=== PATIENT | female | born 1980 | race Caucasian/White ===

== ENCOUNTER 2017-04-10 04:08 | Emergency (ER) | payer BC ==
[2017-04-10] MEDS ORDERED: Ketorolac Tromethamine 30 MG/ML VIAL ONE (04:51)
== END 2017-04-10 05:10 | disposition home or self-care (01) ==
LOC: ERS 04:08
DX: K02.9 Dental caries, unspecified (principal); F41.9 Anxiety disorder, unspecified; F32.9 Major depressive disorder, single episode, unspecified; Z79.899 Other long term (current) drug therapy
CPT/HCPCS: 96372; J1885

== ENCOUNTER 2018-01-08 14:47 | Day surgery (SDC) | payer BC ==
[2018-01-08 16:02] LABS: #Eosinphils 0.1 thou/uL (0.0-0.7); #Lymphocytes 2.1 thou/uL (1.20-3.40); #Monocytes 0.5 thou/uL (0.11-0.59); #Neutrophils 8.9 thou/uL (1.40-6.50); %Basophils 0.4 % (0.0-1.0); %Eosinophils 0.8 % (0.0-10.0); %Lymphocytes 17.8 % (21.0-51.0); %Monocytes 4.1 % (0.0-10.0); Hemoglobin 12.3 g/dL (12.0-16.0); Mean Corpuscular HGB CONC 33.8 g/dL (32.0-36.0); Mean Corpuscular Hemoglobin 30.1 pg (27.0-31.0); Mean Platelet Volume 6.9 fL (7.4-10.4); Platelet Count 258 thou/uL (130-400); RBC Distribution Width 11.7 % (11.5-14.5); Red Blood Cell (RBC) Count 4.08 mill/uL (4.20-5.40); White Blood Cell (WBC) Count 11.5 thou/uL (4.8-10.8)
[2018-01-08 16:04] LABS: Bilirubin Negative (Negative); Blood, Urine Negative (Negative); Clarity CLEAR (Clear); Glucose, Urine (Dipstick) Negative (Negative); Leukocyte Negative (Negative); Nitrite Negative (Negative); Protein, Urine (Dipstick) Negative (Neg-Trace); Specific Gravity, Urine 1.011 (1.002-1.036); pH, Urine 6.5 (5.0-9.0)
[2018-01-08 16:23] LABS: ALT (SGPT) 11 U/L (8-55); AST (SGOT) 11 U/L (5-34); Albumin 3.3 g/dL (3.5-5.0); Alkaline Phosphatase 81 U/L (40-150); Anion Gap 11 mmol/L (10-20); BUN (Urea Nitrogen) 4 mg/dL (7.0-18.7); Bilirubin, Total 0.3 mg/dL (0.2-1.2); Calc. Creatinine Clearance 0 mL/min (70-130); Calcium 8.8 mg/dL (7.8-10.44); Carbon Dioxide 21 mmol/L (22-29); Chloride 106 mmol/L (98-107); Estimated GFR-MDRD Greater than 90; Globulin 2.8 g/dL (2.4-3.5); Glucose 133 mg/dL (70-105); Potassium 3.6 mmol/L (3.5-5.1); Protein, Total 6.1 g/dL (6.0-8.3); Sodium 134 mmol/L (136-145)
[2018-01-08 16:24] VITALS: BMI 34.2
--- NOTE | 2018-01-09 02:49 | SS ---
DATE OF EVALUATION: 01/08/2018 LABOR AND DELIVERY TRIAGE NOTE REGULAR PHYSICIAN: Farhan Santos D.O. EVALUATING PHYSICIAN: Nathan Gaston M.D. CHIEF COMPLAINT: Elevated blood pressures at home. HISTORY OF PRESENT ILLNESS: Ms. Garcia is a 38-year-old white G2, P0-1-0-1 with an estimated date of confinement of 05/10/2018, who presents to triage after noticing elevated blood pressures at home. She states she did not feel well last week and was put on blood pressure monitoring at home. She had blood pressures of 145/74 and 148/84 and called into the office. She was told to come to triage for evaluation. She denies significant headache, visual changes , or right upper quadrant pain. Her care so far has been uncomplicated with Dr. Santos. PAST OBSTETRICAL HISTORY: Includes a previous for elevated blood pressure and gestational diabetes. PAST MEDICAL HISTORY: None. PAST SURGICAL HISTORY: and cholecystectomy. CURRENT MEDICATIONS: vitamins and a baby aspirin. ALLERGIES: CODEINE. SOCIAL HISTORY: Denies tobacco or alcohol use. FAMILY HISTORY: Unremarkable. REVIEW OF SYSTEMS: She denies nausea, vomiting, fever, chills, vaginal bleeding , or ruptured membranes. She also denies significant headache or visual changes. PHYSICAL EXAMINATION: VITAL SIGNS: Initial blood pressure in triage is 170/72, her next blood pressure is 147/64, her pulse is 81, and she is afebrile. ABDOMEN: Soft, nontender, and gravid. PELVIC EXAMINATION: Deferred. heart tones are stable. No uterine activity is seen. LABORATORY DATA: CBC shows a white count of 11.5, hemoglobin of 12.3, a hematocrit of 36.3, and a platelet count of 258,000. Chemistry shows a potassium of 3.6, a creatinine of 0.61, a total bilirubin of 0.3 and an AST and ALT of 11 and 11 respectively. Urinalysis shows a specific gravity 1.011 with negative leukocytes, negative nitrites, negative urine protein, negative glucose , and negative ketones. ASSESSMENT: 1. 22-week intrauterine . 2. No evidence of preeclampsia at this time. PLAN: The patient has been discharged to home. I have asked her to rest at home. Signs and symptoms of preeclampsia were reviewed with her and she states she will follow up early next week with Dr. Santos. ISAMAR
== END 2018-01-08 17:10 | disposition home or self-care (01) ==
LOC: L&D/OP 14:47 → EDSTATUS 14:48 → L&D/OP 17:10
PROVIDERS: ATTEND Obstetrics & Gynecology
DX: O99.89 Other specified diseases and conditions complicating pregnancy, childbirth and the puerperium (principal); R03.0 Elevated blood-pressure reading, without diagnosis of hypertension; Z3A.22 22 weeks gestation of pregnancy
CPT/HCPCS: 36415; 80053; 81003; 85025; 99283

== ENCOUNTER 2018-02-15 11:57 | Day surgery (SDC) | payer BC ==
[2018-02-15 12:57] VITALS: BMI 34.9
--- NOTE | 2018-02-15 21:37 | PRG ---
DATE OF SERVICE: 02/15/2018 PRIMARY ASSEMBLY MANAGER: Dr. Farhan Santos. CHIEF COMPLAINT: Elevated blood pressures. HISTORY OF PRESENT ILLNESS: The patient is a 38-year-old G2, P1 female with an intrauterine pregnanc y at 28 weeks' gestation who was directed to labor and delivery after reporting elevated blood pressu res at home to her OB Clinic. She reports her blood pressures have been consistently in the 150s/90s . Reviewing the record, she has had elevated blood pressures in clinic first noted at 18 weeks and 6 days and was counseled to have a blood pressure cuff at home to check periodically. Patient reports that she checks it whenever she is feeling bad and is not always at home and she does do her blood p ressure evaluation. The patient reports intermittent headaches, nausea without vomiting, some shortn ess of breath. Denies chest pain, denies fever, denies any rashes, constipation or diarrhea. Denies any vaginal bleeding or leakage of fluid. Denies urinary urgency or frequency. PAST MEDICAL HISTORY: Fibromyalgia, hypothyroidism, diabetes mellitus preexisting versus gestational , obesity, advanced maternal age. PAST SURGICAL HISTORY: Previous performed at maternal request, cholecystectomy. ALLERGIES: CODEINE. MEDICATIONS: Lantus 10 units to be taken once daily, Humalog sliding scale with meals, niyah mins. SOCIAL HISTORY: Denies drug, alcohol or tobacco use. OB HISTORY: The patient has a history of gestational hypertension and gestational diabetes. OB LABS: Blood type O positive, antibody screen is negative. She is rubella immune, hepatitis B roberto face antigen is nonreactive. RPR is nonreactive in the first trimester. LABORATORY STUDIES: Hemoglobin A1c 6.5 in 09/2017. HIV nonreactive in the first trimester. Gonorrh ea negative, chlamydia negative. REVIEW OF SYSTEMS: Per HPI. PHYSICAL EXAMINATION: VITAL SIGNS: The patient was monitored over the course of 2 hours and blood pressures remained in th e 120s/70s, pulse of 70s and 80s. Respiration rate 20, satting 96-98% on room air, temperature 98.2. GENERAL: She appears to be in no acute distress. She is alert and oriented, cooperative and pleasan t to interact with. HEENT: Normocephalic, atraumatic. LUNGS: Clear to auscultation bilaterally. HEART: Regular rate and rhythm. ABDOMEN: Soft, nontender and nonedematous. EXTREMITIES: Nontender, nonedematous. heart tracing performed for reported elevated blood pressures. Baseline is noted to be in the 140s with moderate long-term variability, positive 15 x 15 accelerations. Tocometer is quiet. No ev idence of contractions. ASSESSMENT AND PLAN: The patient is a 38-year-old female with reported elevated blood pressures at h ome with all normal pressures here in the clinic or here in labor and delivery, the patient did bring her blood pressure cuff and did check it forth the way she normally does and it initially read 156/9 2. The patient was elevating her arm as she was taking the blood pressure cuff and not resting on th e table. Upon showing her proper technique, the blood pressure immediately dropped within the ranges of what will be getting here in the 120s/70s. Demonstrating the importance of proper technique to t he patient, the patient responded that she is not able to put her arm at rest and when she takes her blood pressure that she is in her car sometimes and we asked that she take her blood pressure when sh e can be at rest and when she can put her arm in the proper positioning. The patient again reported that she cannot put her arm on a table and I shared with her that I was not trying to argue with her, but that I was trying to communicate to her that unless she places her arm as instructed on the mach ine that the blood pressures are not reliable. Patient did not seem to appreciate this response and became upset. did respond that they would figure something. The interaction was calm and qu iet. Fetus had a reassuring tracing. The patient was discharged to home and encouraged to follow up with her primary OB as scheduled.
== END 2018-02-15 15:05 | disposition home or self-care (01) ==
LOC: L&D/OP 11:57
PROVIDERS: ATTEND Obstetrics & Gynecology
DX: O99.89 Other specified diseases and conditions complicating pregnancy, childbirth and the puerperium (principal); R03.0 Elevated blood-pressure reading, without diagnosis of hypertension; O99.212 Obesity complicating pregnancy, second trimester; O99.282 Endocrine, nutritional and metabolic diseases complicating pregnancy, second trimester; E03.9 Hypothyroidism, unspecified; O09.522 Supervision of elderly multigravida, second trimester; Z3A.18 18 weeks gestation of pregnancy; Z88.5 Allergy status to narcotic agent
CPT/HCPCS: 99283

== ENCOUNTER → 2018-03-17 | Day surgery (SDC) | payer BC ==
[2018-03-17 16:23] VITALS: BP 141/68; TEMP 98.1; BMI 34.9
[2018-03-17 17:59] LABS: Bilirubin Negative (Negative); Blood, Urine Negative (Negative); Clarity CLEAR (Clear); Glucose, Urine (Dipstick) Negative (Negative); Leukocyte Negative (Negative); Nitrite Negative (Negative); Protein, Urine (Dipstick) Negative (Neg-Trace); Specific Gravity, Urine 1.009 (1.002-1.036); Urobilinogen 0.2 mg/dL (0.2-1.0)
[2018-03-17 18:03] LABS: Bacteria/HPF None Seen HPF (None Seen); Hyaline Casts/LPF 0-3 HYALINE CAST LPF (0-3 Hyaline); Pathc Cast-AUWi Flag 0.87 (0-2.49); RBC/HPF 0-3 HPF (0-3); Squamous Epithelial 0-3 HPF (0-3); WBC/HPF 0-3 HPF (0-3)
--- NOTE | 2018-03-17 20:06 | PRG ---
DATE OF SERVICE: 03/17/2018 PRIMARY HEADER BOSS: Dr. Farhan Santos. CHIEF COMPLAINT: Right lower quadrant pains. HISTORY OF PRESENT ILLNESS: The patient is a 38-year-old G2, P1 female with an intrauterine pregnanc y at 32 weeks and 2 days who is presenting with complaints of pains in her right lower quadrant that was sharp and pretty intense and has since improved some. Given the intensity that she was experienc ing it, she wanted to come in to be evaluated. Patient denies having pain associated with movement a nd activity. She says that walking and activity helped improve the pain at times. This pain has bee n present off and on for the last couple hours. She reports that she feels the pain into her legs at times. The patient denies recent intercourse, fall, trauma, fever, headache, chest pain, shortness of breath, nausea, vomiting, diarrhea, constipation, new rashes, hip problems or knee problems or mus benjy weakness. She denies vaginal bleeding or leakage of fluid. She denies urinary urgency or freque ncy. The patient has an appointment with her OB doctor next Tuesday and had an ultrasound yesterday. PAST MEDICAL HISTORY: Hypothyroidism, fibromyalgia, diabetes. PAST SURGICAL HISTORY: . SOCIAL HISTORY: Denies drug, alcohol or tobacco use. ALLERGIES: CODEINE. MEDICATIONS: Humalog, Lantus, Reglan 5 mg tablets to be taken by mouth every 6 hours as needed. OB LABS: Unavailable at time of dictation. REVIEW OF SYSTEMS: Per HPI. PHYSICAL EXAMINATION: VITAL SIGNS: Blood pressure 141/68, heart rate of 67, respiratory rate of 16, satting 99% on room ai r, temperature 98.1. GENERAL: She appears to be in no acute distress. She is alert and oriented, cooperative and pleasan t to interact with. HEENT: Normocephalic, atraumatic. CHEST: Clear to auscultation bilaterally. HEART: Regular rate and rhythm. ABDOMEN: Soft, gravid, nontender to palpation. EXTREMITIES: Nontender, nonedematous. PELVIC: Vulva is without masses, lesions or erythema. Cervix is visibly closed. There is minimal d ischarge present. On bimanual exam, cervix is closed and thick. heart tracing performed for abdominal pain in . Baseline is noted to be in the 130s w ith moderate long-term variability, positive 15 x 15 accelerations, no decelerations. She has some i rritability, not felt by the patient though. Urinalysis is negative for glucose, blood, nitrites, le ukocyte esterase, white blood cells, and bacteria. She does have 80 ketones. Her METAL FINISH INSPECTOR-3 is negative f or Trichomonas, Gardnerella and Loni. ASSESSMENT AND PLAN: The patient is a 38-year-old female G2, P1 with an intrauterine at 32 weeks and 2 days who is presenting with acute onset right lower quadrant pain that has resolved on i ts own by the end of her visit with us. Patient reports that the pain has gotten much better and is relieved that it is not anything serious. The patient has been given precautions and when being disc harged to home, she has no evidence of urinary tract infection or vaginal infection. As the patient was given final staff counsel, she did report that she does not eat much during the day and that may be cou nt for her ketones. The patient has scheduled appointment next Tuesday with her primary OB, which we have encouraged that she keep.
== END ==
LOC: L&D/OP 15:46
PROVIDERS: ATTEND Obstetrics & Gynecology
DX: O99.89 Other specified diseases and conditions complicating pregnancy, childbirth and the puerperium (principal); R10.31 Right lower quadrant pain; O24.913 Unspecified diabetes mellitus in pregnancy, third trimester; O99.283 Endocrine, nutritional and metabolic diseases complicating pregnancy, third trimester; E03.9 Hypothyroidism, unspecified; Z3A.32 32 weeks gestation of pregnancy; Z88.5 Allergy status to narcotic agent; Z98.890 Other specified postprocedural states
CPT/HCPCS: 81001; 87480; 87510; 87660

== ENCOUNTER 2018-04-19 09:39 | Inpatient (IN) | payer BC ==
[2018-04-19] MEDS: Lactated Ringer's 1,000 ML IV SCH ×2 (10:40→10:57)
[2018-04-19] MEDS ORDERED: Bicitra 30 ML UDCUP ONE (10:48)
[2018-04-19] MEDS ORDERED: CEFAZOLIN/Water 2 GM/20 ML SYRINGE ONE (10:48)
--- NOTE | 2018-04-19 10:59 | PDOC.LDHP ---
Labor and Delivery H&P Chief complaint: scheduled section HPI: Pt is a 38yo @ 37 weeks here for scheduled CS for GHTN and class B diabetes. Current gestational age (weeks): 37 Due date: 05/10/18 Dating criteria: last menstrual period, first trimester ultrasound Grav: 2 Para: 1 OB History Details: HX oF CS Current complications: other (diabetes, GHTN, hypothryoid) Abnormal US findings: No Past Medical History: diabetes controlled on insulin correction, GHTN, fibromyalgia Current medications: pre- vitamins, other (insulin,) Previous surgical history: low tranverse CS Allergies/Adverse Reactions: Allergies Allergy/AdvReac Type Severity Reaction Status Date / Time codeine Allergy Verified 02/15/18 12:42 Social history: none - Physical Exam Vital signs reviewed and normal: yes General: resting Abdomen: gravid Extremeties: trace edema FHT: category 1 - OB Labs Blood type: O RH: negative Antibody Screen: negative HIV: negative RPR: negative HEPSAg: negative GBS: negative Rubella: non-immune - Assessment L&D Assessment: scheduled repeat section - Plan Plan: admit to L&D, informed consent obtained, anesthesia consult for pain management -: A/P: 38yo @ 37 weeks with Class B DM, fibromyalgia, AMA, HTN since 34 weeks here for scheduled RCS, declines TOLAC. Pt amenable to ONQ pump.
[2018-04-19] MEDS ORDERED: Dexamethasone 20 MG/5 ML VIAL ONE (11:01)
[2018-04-19] MEDS ORDERED: PHENYLEPHRINE-NS 100 MCG/ML 10 ML SYRINGE ONE ×2 (11:01→11:37)
[2018-04-19] MEDS ORDERED: Ketorolac Tromethamine 30 MG/ML VIAL ONE ×2 (11:01→11:37)
[2018-04-19] MEDS ORDERED: Ondansetron HCl/PF 4 MG/2 ML Vial ONE ×2 (11:01→11:37)
[2018-04-19] MEDS ORDERED: Ropivacaine 0.2% 550 ML 750 ML NERVE BLCK SCH (11:26)
[2018-04-19] MEDS ORDERED: Bicitra 30 ML UDCUP PO SCH (11:26)
[2018-04-19] MEDS ORDERED: Promethazine HCl 25 MG/ML VIAL IM PRN ×4 (11:26→17:18)
[2018-04-19] MEDS ORDERED: Ondansetron HCl/PF 4 MG/2 ML Vial IVP PRN ×4 (11:26→15:55)
[2018-04-19] MEDS ORDERED: CEFAZOLIN/Water 2 GM/20 ML SYRINGE SLOW IVP SCH (11:26)
[2018-04-19] MEDS ORDERED: Ropivacaine HCl/PF 750 ML in Premix Bag 1 BAG NERVE BLCK SCH (11:30)
[2018-04-19] MEDS ORDERED: Morphine PF 1 MG/ML SYR ONE (11:36)
[2018-04-19] MEDS ORDERED: Fentanyl 100 MCG/2 ML VIAL ONE (11:36)
[2018-04-19] MEDS ORDERED: Bupivacaine 0.75% W/DEXTROSE 8.25% 2 ML AMP ONE (11:37)
[2018-04-19] MEDS ORDERED: Dexamethasone 4 mg/ml Vial ONE (11:37)
[2018-04-19] MEDS ORDERED: Lidocaine 2% PF Inj 2 ML VIAL ONE (11:37)
[2018-04-19] MEDS ORDERED: Oxytocin 10 UNITS/ML VIAL ONE (11:37)
[2018-04-19 11:39] LABS: Hemoglobin 12.1 g/dL (12.0-16.0); Mean Corpuscular Hemoglobin 26.9 pg (27.0-31.0); Mean Corpuscular Volume 81.5 fL (78.0-98.0); Mean Platelet Volume 7.2 fL (7.4-10.4); Platelet Count 337 thou/uL (130-400); Red Blood Cell (RBC) Count 4.52 mill/uL (4.20-5.40); White Blood Cell (WBC) Count 11.1 thou/uL (4.8-10.8)
[2018-04-19] MEDS ORDERED: Acetaminophen 1,000 MG in Premix Bag 1 BAG IVPB PRN (11:50)
[2018-04-19 11:52] LABS: ALT (SGPT) 11 U/L (8-55); AST (SGOT) 14 U/L (5-34); Albumin 3.2 g/dL (3.5-5.0); Alkaline Phosphatase 159 U/L (40-150); Anion Gap 14 mmol/L (10-20); BUN (Urea Nitrogen) 5 mg/dL (7.0-18.7); Bilirubin, Total 0.6 mg/dL (0.2-1.2); Calc. Creatinine Clearance 167 mL/min (70-130); Carbon Dioxide 19 mmol/L (22-29); Chloride 106 mmol/L (98-107); Estimated GFR-MDRD Greater than 90; Globulin 2.7 g/dL (2.4-3.5); Glucose 110 mg/dL (70-105); Protein, Total 5.9 g/dL (6.0-8.3); Sodium 135 mmol/L (136-145)
[2018-04-19] MEDS ORDERED: diphenhydrAMINE 50 MG/ML VIAL IVP PRN ×2 (11:52→17:18)
[2018-04-19] MEDS ORDERED: Promethazine HCl 25 MG SUPP PR PRN ×2 (11:52→17:18)
[2018-04-19] MEDS ORDERED: Eucerin (Mineral Oil/Petrolatum,White) 30 gm Jar TOP PRN (11:52)
[2018-04-19] MEDS ORDERED: Naloxone HCl 0.4 mg/ml Vial IVP PRN ×2 (11:52)
[2018-04-19] MEDS ORDERED: Naloxone HCl 0.4 mg/ml Vial IV PRN ×4 (11:52→17:18)
[2018-04-19] MEDS ORDERED: Ketorolac Tromethamine 30 MG/ML VIAL IVP SCH (12:00)
[2018-04-19] MEDS ORDERED: Communication Order-Pharmacy FS SCH (12:00)
[2018-04-19 12:11] LABS: HBSAg Index 0.24 S/CO (0-0.99); Hep B Surf Ag Non-Reactive S/CO (NonReactive); Syphilis Antibody Nonreactive (Nonreactive); Syphilis Antibody Index 0.06 S/CO (<1.00 Non-Reactive)
[2018-04-19] MEDS ORDERED: Bupivacaine 0.25% HCL 30 ML VIAL ONE (12:39)
--- NOTE | 2018-04-19 13:02 | PDOC.OPDEL ---
OB Operative/Delivery Note Delivery Dr/Surgeon: Tom Assist: Stephanie Pre-Delivery Diagnosis: scheduled section (for PIH and Class B DM) Procedure/Post Delivery Dx: repeat low transverse CS (and placement of ON Q nerve block) Weeks gestation: 37 - Findings A Sex: female Weight: 6 lb 5 oz - 1 min: 8 - 5 min: 9 - Additional Findings/Plan Placenta delivered: spontaneous findings: low transverse hysterotomy without extension, normal uterus, normal tubes, normal ovaries Compilations/Other Findings: none Post delivery plan: routine recovery
[2018-04-19] MEDS ORDERED: Bisacodyl 10 MG SUPP PR PRN (15:55)
[2018-04-19] MEDS ORDERED: Dextrose 5% in Water 1,000 ML IV PRN (15:55)
[2018-04-19] MEDS ORDERED: Lanolin Ointment 7 GM TUBE TOP PRN (15:55)
[2018-04-19] MEDS ORDERED: Dextrose 50% Abboject 50 ML SYRINGE SLOW IVP PRN (15:55)
[2018-04-19] MEDS ORDERED: Meperidine HCl/PF 25 MG/ML VIAL IM PRN (15:55)
[2018-04-19] MEDS ORDERED: diphenhydrAMINE 25 MG CAP PO PRN (15:55)
[2018-04-19] MEDS ORDERED: HumaLOG 300 UNITS/3 ML VIAL SC PRN (15:55)
[2018-04-19] MEDS ORDERED: Lactated Ringer's 1,000 ML IV SCH (15:55)
[2018-04-19] MEDS ORDERED: Adacel (T-DAP) 0.5 ML VIAL IM ONE (17:00)
[2018-04-19] MEDS ORDERED: NO PO,IM,IV OR SC NARCOTICS FOR 12HR EXCEPT BY ANESTHESIA PO SCH (17:18)
[2018-04-19] MEDS ORDERED: Hydrocerin (Eucerin) Cream 120 gm Jar TOP PRN (17:18)
[2018-04-19] MEDS ORDERED: NS / Oxytocin 40 units/1000ml 1,000 ML ONE (18:04)
[2018-04-19] MEDS: Ketorolac Tromethamine 30 MG/ML VIAL IVP PRN (18:07)
[2018-04-19] MEDS: Ondansetron HCl/PF 4 MG/2 ML Vial IVP PRN (19:30)
--- NOTE | 2018-04-19 21:36 | OP ---
PREOPERATIVE DIAGNOSES: 1. A 38-year-old, G2, P1-0-0-1 at 37 weeks. 2. Class B diabetes. 3. -induced hypertension. 4. Previous section, declines trial of labor. POSTOPERATIVE DIAGNOSES: 1. A 38-year-old, G2, P1-0-0-1 at 37 weeks. 2. Class B diabetes. 3. -induced hypertension. 4. Previous section, declines trial of labor. 5. Status post repeat section. PROCEDURE PERFORMED: Repeat low-transverse section with placement of ON-Q nerve block and p ump. SURGEON: Farhan Santos DO MEMS INTEGRATION ENGINEER: Lizz Brown DO ANESTHESIA: Spinal per Dr. David. COMPLICATIONS: None. QUANTITATIVE BLOOD LOSS: Pending at the time of dictation. FINDINGS: 1. Vigorous female , Apgars 8 and 9, weight 6 pounds 5 ounces to nursery. 2. Low-transverse hysterotomy without extension. 3. Normal-appearing uterus, tubes, and ovaries with the exception of multiple small uterine fibroids noted within the anterior myometrial wall, largest 2 cm. 4. Surgical sites hemostatic. PROCEDURE DETAILS: The patient was taken back to the OR with IV fluids running. Once she was in the OR, spinal anesthesia was obtained and the patient was placed in dorsal supine position with a left lateral tilt. Yang catheter was placed using sterile technique. The abdomen was prepped and draped in normal fashion for section and the surgeons were scrubbed in. Anesthesia was tested and found to be adequate. A Pfannenstiel skin incision was made with a scalpel. Skin incision was pate ied down through the subcutaneous tissue to the fascia. Once the fascia was reached, it was incised in the midline and extended superolaterally using curved Berry scissors. Radha clamps were placed at the superior border of the fascia, which was sharply and bluntly dissected off the rectus abdominis muscles in both caudad and cephalad directions, allowing adequate space for delivery of the . The rectus muscles were bluntly in the midline. The peritoneum was bluntly entered and str etched laterally. An Chris O retractor was placed into the peritoneal cavity for retraction, visual ization, and protection of the wound. A bladder flap was created with the scalpel and the bladder wa s dissected down away from the planned hysterotomy site. A low-transverse hysterotomy was made with the scalpel. Hysterotomy was bluntly entered and stretched using the Guillen maneuver. Clear amniotic fluid was noted. The was delivered without difficulty through the hysterotomy. The nose and mouth were suctioned. The cord was doubly clamped and cut and the was handed off to special c are nurses in attendance. Cord blood was collected. The placenta was delivered spontaneously. The uterus was exteriorized, massaged to firm, and cleared of clot and debris with a clean dry sponge. T he uterus was inspected with multiple small fibroids noted, but otherwise normal-appearing tubes and ovaries were seen. The uterus was returned to the abdominal cavity where the hysterotomy was closed in a running locked fashion using Monocryl suture. An additional [id number] stitch was placed i n the midline of the hysterotomy for hemostasis. Once hemostasis was assured, the hysterotomy and pe ricolic gutters were copiously irrigated and suctioned dry clearing the area of blood clot and debris . Hysterotomy was inspected again and noted to be hemostatic. The uterus was noted to be firm. The Chris O retractor was removed from the abdominal cavity. The peritoneum was reapproximated with pl ain gut suture. Two ON-Q catheter tips were directed through the skin, subcutaneous tissue, and thro ugh the fascia. The catheter tips were directed down into the contralateral corners of the fascial i ncision and were left between the rectus fascia and rectus muscles. The rectus fascia was then close d over the catheter tips in a running fashion using PDS suture from corner to corner. After the fasc ia was closed, the subcutaneous tissue was irrigated and dried. Any small areas of bleeding were con trolled with Bovie cauterization. Plain gut suture was used to reapproximate the subcutaneous layer. The subcuticular layer was closed with 4-0 Monocryl and dressed with Dermabond dressing. The patie nt was then cleaned, dried. The catheter tips were primed with local Marcaine. The patient was angulo sferred to recovery room in good condition.
[2018-04-20] MEDS: Ketorolac Tromethamine 30 MG/ML VIAL IVP PRN ×2 (00:16→06:43)
[2018-04-20] MEDS: Docusate Calcium (SURFAK) 240 MG CAP PO SCH ×3 (02:03→21:35)
[2018-04-20] MEDS: Ferrous Sulfate 325 MG TAB PO SCH ×3 (02:03→21:36)
[2018-04-20] MEDS: Ibuprofen 800 MG TAB PO SCH ×4 (02:03→21:36)
[2018-04-20 05:53] LABS: Hemoglobin 11.2 g/dL (12.0-16.0); Mean Corpuscular HGB CONC 33.1 g/dL (32.0-36.0); Mean Corpuscular Hemoglobin 27.3 pg (27.0-31.0); Mean Corpuscular Volume 82.5 fL (78.0-98.0); Mean Platelet Volume 7.4 fL (7.4-10.4); Platelet Count 303 thou/uL (130-400); Red Blood Cell (RBC) Count 4.09 mill/uL (4.20-5.40); White Blood Cell (WBC) Count 15.5 thou/uL (4.8-10.8)
[2018-04-20] MEDS: Prenatal Vitamin 1 TAB PO SCH (09:41)
[2018-04-20] MEDS: Simethicone Chewable 80 MG TAB PO PRN ×2 (09:45→18:21)
--- NOTE | 2018-04-20 12:13 | PDOC.PP ---
Post Progress Note Post Day #: 1 Subjective: doing well, increased pain across incision not well controlled w NSAIDS and OnQ , tolerating regular diet PO intake tolerated: yes Flatus: yes Ambulation: yes Vital Signs (12 hours) Temp Pulse Resp BP Pulse Ox 04/20/18 12:02 97.9 F 73 20 124/74 04/20/18 08:05 98.0 F 54 L 20 125/67 98 04/20/18 03:20 97.6 F 57 L 18 140/73 04/20/18 00:15 97.7 F 56 L 18 154/72 H 97 Weight Weight 195 lb - Physical Examination General: NAD (standing in shower) Respiratory: non-labored breathing Skin: CS incision dry & intact, no rash Neurological: no gross focal deficits Psychiatric: A&Ox3, normal affect Result Diagrams: 04/20/18 05:24 04/19/18 10:40 Additional Labs: Post Labs Blood Type O POSITIVE 04/19/18 10:40 Hep Bs Antigen Non-Reactive S/CO (NonReactive) 04/19/18 10:40 (1) Status post repeat low transverse section Code(s): Z98.891 - HISTORY OF UTERINE SCAR FROM PREVIOUS SURGERY Status: Acute (2) Diabetes mellitus complicating in third trimester, antepartum Code(s): O24.913 - UNSPECIFIED DIABETES MELLITUS IN , THIRD TRIMESTER Status: Acute (3) Gestational hypertension without significant proteinuria, Code(s): O13.9 - GESTATIONAL HTN W/O SIGNIFICANT PROTEINURIA, UNSP TRIMESTER Status: Acute - Assessment/Plan A/P: POD1, doing well with exception of inadequate pain control, with add [place] PRN.
[2018-04-20] MEDS: HYDROcodone/Acetaminophen 5/325 mg Tablet PO PRN ×3 (13:17→22:55)
[2018-04-21] MEDS: Ibuprofen 800 MG TAB PO SCH ×3 (05:53→20:59)
[2018-04-21] MEDS: Simethicone Chewable 80 MG TAB PO PRN ×2 (07:39→20:59)
[2018-04-21] MEDS: Ferrous Sulfate 325 MG TAB PO SCH ×2 (08:59→23:40)
[2018-04-21] MEDS: Docusate Calcium (SURFAK) 240 MG CAP PO SCH ×2 (08:59→20:59)
[2018-04-21] MEDS: Prenatal Vitamin 1 TAB PO SCH (08:59)
[2018-04-21] MEDS: HYDROcodone/Acetaminophen 5/325 mg Tablet PO PRN ×3 (09:01→20:59)
--- NOTE | 2018-04-21 12:05 | PDOC.PP ---
Post Progress Note Post Day #: 2 Subjective: doing well, pain controlled w oral meds and increase rate of ONQ, does not desire DC home today. PO intake tolerated: yes Flatus: yes Ambulation: yes Vital Signs (12 hours) Temp Pulse Resp BP Pulse Ox 04/21/18 11:28 97.7 F 65 20 136/86 04/21/18 08:18 98.0 F 66 20 137/79 95 04/21/18 07:40 95 04/21/18 04:22 98.1 F 71 18 138/71 97 04/21/18 00:32 97.9 F 67 20 159/77 H 97 Weight Weight 195 lb - Physical Examination General: NAD Respiratory: non-labored breathing Abdominal: no distention Fundus firm & at: below umb Extremities: negative homans (B) Skin: CS incision dry & intact, no rash Neurological: no gross focal deficits Psychiatric: A&Ox3, normal affect Result Diagrams: 04/20/18 05:24 04/19/18 10:40 Additional Labs: Post Labs Blood Type O POSITIVE 04/19/18 10:40 Hep Bs Antigen Non-Reactive S/CO (NonReactive) 04/19/18 10:40 (1) Status post repeat low transverse section Code(s): Z98.891 - HISTORY OF UTERINE SCAR FROM PREVIOUS SURGERY Status: Acute (2) Diabetes mellitus complicating in third trimester, antepartum Code(s): O24.913 - UNSPECIFIED DIABETES MELLITUS IN , THIRD TRIMESTER Status: Acute (3) Gestational hypertension without significant proteinuria, Code(s): O13.9 - GESTATIONAL HTN W/O SIGNIFICANT PROTEINURIA, UNSP TRIMESTER Status: Acute - Assessment/Plan POD2 sp RCS for GHTN in setting of Class B DM, doing well, plan for DC tomorrow.
--- NOTE | 2018-04-21 21:10 | PDOC.EVN ---
Event Note - Event Note Event Note: OBGYN precision honer note: POD2 HX Class B DM and PIH: I was just notified that isolated sysolic BP was 178, repeated and was the same 15 minutes later. I have requested a heplock IV and 20mg labetolol IV stat now. BP checks every 20 minutes after labetolol. If BPs stay elevated, we will transfer back to L&D for magnesium sulfate. I have ordered CBC and CMP
[2018-04-21] MEDS ORDERED: Sodium Chloride 0.9% 10 ML ONE (21:11)
[2018-04-21] MEDS ORDERED: Labetalol HCl 100 MG/20 ML VIAL SLOW IVP SCH (21:15)
[2018-04-21 21:41] LABS: #Eosinphils 0.2 thou/uL (0.0-0.7); #Lymphocytes 2.7 thou/uL (1.20-3.40); #Monocytes 0.5 thou/uL (0.11-0.59); #Neutrophils 7.4 thou/uL (1.40-6.50); %Basophils 0.4 % (0.0-1.0); %Eosinophils 1.8 % (0.0-10.0); %Lymphocytes 24.7 % (21.0-51.0); %Monocytes 4.6 % (0.0-10.0); %Neutrophils 68.5 % (42.0-75.0); Hemoglobin 11.4 g/dL (12.0-16.0); Mean Corpuscular HGB CONC 32.9 g/dL (32.0-36.0); Mean Corpuscular Hemoglobin 27.3 pg (27.0-31.0); Mean Corpuscular Volume 83.1 fL (78.0-98.0); Mean Platelet Volume 7.2 fL (7.4-10.4); Platelet Count 303 thou/uL (130-400); RBC Distribution Width 12.2 % (11.5-14.5); Red Blood Cell (RBC) Count 4.16 mill/uL (4.20-5.40); White Blood Cell (WBC) Count 10.8 thou/uL (4.8-10.8)
[2018-04-21 22:01] LABS: ALT (SGPT) 12 U/L (8-55); AST (SGOT) 11 U/L (5-34); Albumin 2.9 g/dL (3.5-5.0); Alkaline Phosphatase 125 U/L (40-150); Anion Gap 12 mmol/L (10-20); BUN (Urea Nitrogen) 11 mg/dL (7.0-18.7); Bilirubin, Total 0.2 mg/dL (0.2-1.2); Calc. Creatinine Clearance 149 mL/min (70-130); Carbon Dioxide 21 mmol/L (22-29); Chloride 107 mmol/L (98-107); Estimated GFR-MDRD 90; Globulin 2.9 g/dL (2.4-3.5); Glucose 144 mg/dL (70-105); Potassium 4.2 mmol/L (3.5-5.1); Protein, Total 5.8 g/dL (6.0-8.3); Sodium 136 mmol/L (136-145)
[2018-04-22] MEDS: HYDROcodone/Acetaminophen 5/325 mg Tablet PO PRN ×2 (03:46→17:18)
[2018-04-22] MEDS: Ibuprofen 800 MG TAB PO SCH (05:31)
--- NOTE | 2018-04-22 05:46 | PDOC.EVN ---
Event Note - Event Note Event Note: Labs wnl
--- NOTE | 2018-04-22 06:04 | PDOC.PP ---
Post Progress Note Post Day #: 3 Subjective: No TERRY, no visual sxs PO intake tolerated: yes Flatus: yes Ambulation: yes Vital Signs (12 hours) Temp Pulse Resp BP BP BP BP 04/22/18 03:40 79 137/76 04/21/18 23:22 79 144/72 H 04/21/18 23:21 80 140/70 04/21/18 23:20 62 137/66 04/21/18 22:45 62 142/67 H 04/21/18 22:25 72 175/79 H 04/21/18 22:05 68 162/76 H 04/21/18 21:41 69 178/83 H 04/21/18 21:40 68 178/95 H 04/21/18 21:00 69 178/83 H 04/21/18 20:00 97.2 F L 66 16 176/84 H Weight Weight 195 lb - Physical Examination General: NAD Cardiovascular: no m/r/g Respiratory: clear to auscultation bilaterally Abdominal: + bowel sounds, lochia, no distention, appropriately TTP Extremities: negative homans (B) Skin: CS incision dry & intact (sutured with on-Q pump in use) Neurological: no gross focal deficits Psychiatric: A&Ox3, normal affect Result Diagrams: 04/21/18 21:33 04/21/18 21:33 Additional Labs: Post Labs Blood Type O POSITIVE 04/19/18 10:40 Hep Bs Antigen Non-Reactive S/CO (NonReactive) 04/19/18 10:40 (1) Diabetes mellitus complicating in third trimester, antepartum Code(s): O24.913 - UNSPECIFIED DIABETES MELLITUS IN , THIRD TRIMESTER Status: Acute (2) delivery, delivered, current hospitalization Code(s): O82 - ENCOUNTER FOR DELIVERY WITHOUT INDICATION Status: Acute (3) Gestational hypertension without significant proteinuria, Code(s): O13.9 - GESTATIONAL HTN W/O SIGNIFICANT PROTEINURIA, UNSP TRIMESTER Status: Acute - Assessment/Plan Plan: 1. Patient seen at bedside. S/P labetolol 20mg IVP last PM...repeat labs wnl 2. Incision C/D/I 3. Prob 1600 dsch home if BPs wnl 4. Currently not on insulin (for last month) due to euglycemia...will folllow up with Endorinologist Dictation done
--- NOTE | 2018-04-22 08:54 | DIS ---
DISCHARGE HELD DATE OF ADMISSION: The patient was admitted on 04/19/2018. DATE OF DISCHARGE: Day of discharge is set at 04/22/2018. PRINCIPAL DIAGNOSES: 1. Diabetes mellitus complicating . 2. delivery during current hospitalization. 3. Gestational hypertension, antepartum. PRINCIPAL PROCEDURE: delivery by Dr. Santos (previous section , declines trial of labor). HOSPITAL COURSE: In brief, this is a 38-year-old G2, P1 at 37 weeks with class B diabetes with induced hypertension. She underwent a repeat C- section by Dr. Santos on 04/19/2018. At that time, she did not have any significant proteinuria, although she did have some elevated blood pressures. I gave a diagnosis of gestational hypertension. She underwent a repeat C- section and for full details, please turn to the dictation dated that date. Baby was 6 pounds, 5 ounces, female, with Apgars 8 and 9. I assumed care of the patient on 04/21/2018 until 04/22/2018 at 8:00 a.m. On 04/21/2018, I was notified in the evening at approximately 2100, the patient's blood pressure had an isolated spike to a systolic value of 175 with a diastolic value of 79. I ordered 20 mg of labetalol IV push x1 with blood pressures returning back down to the 130s to 140s with diastolics in the 60s and 70s. She was asymptomatic during this time. I ordered a repeat CBC and a CMP on 04/21/2018 with this high blood pressure episode and labs were normal. I evaluated the patient on at 0600 hours and found her blood pressure to be 144/72 at last check. I saw the patient at bedside and the incision was clean, dry, and intact and sutured. The ON-Q pump was in place. Has blood pressures had returned to mild range, the plan was to observe the patient throughout the day with potential discharge for 1600 hours on 04/22/2018. The patient was told that I would pass information to the oncoming physician and they are exists the possibility of withholding the discharge of her blood pressure seems to be labile. Medications were called in by Dr. Santos to her outpatient pharmacy. She will follow up with Dr. Santos on Tuesday for incision and blood pressure check. ADDENDUM: Patient not discharged due to persistent BP elevations requiring transfer to L& D on 04/22/18. Please see those notes. MTDD
[2018-04-22] MEDS: Ferrous Sulfate 325 MG TAB PO SCH ×2 (09:20→20:55)
[2018-04-22] MEDS: Docusate Calcium (SURFAK) 240 MG CAP PO SCH ×2 (09:31→20:55)
[2018-04-22] MEDS: Prenatal Vitamin 1 TAB PO SCH (09:31)
[2018-04-22] MEDS ORDERED: Sodium Chloride 0.9% 10 ML ONE (11:14)
[2018-04-22] MEDS ORDERED: Labetalol HCl 100 MG/20 ML VIAL SLOW IVP SCH ×2 (11:15→19:15)
--- NOTE | 2018-04-22 11:42 | PDOC.EVN ---
Event Note - Event Note Event Note: Called by RN for BP 187/90 and pt complaining of frontal headache that she rates as 6/10. She has not had tylenol or motrin since 6 hours ago. Had labs checked last night for elevated BP that were WNL. s/p 1 dose labetalol 20mg - repeat BP 156/78 Evaluated the patient and she was still complaining of frontal headache. Reports diffuse abdominal pain that she thought was gas pains. Reports some occasional spots in her vision that come and go over the past day. Denies any worsened swelling. Denies SOB. Patient was mildly tender over RUQ, but worse over uterine fundus. -Continue labetalol prn SBP > 160, DBP > 110 -One time dose of acetaminophen 1000mg -Will repeat CBC, CMP, and check urine protein:creatinine ratio -If BP's remain elevated with H/A or any abnormal lab values will move to L&D and start pt on magnesium. <Vaishnavi Gibbs - Last Filed: 04/22/18 11:35> Attending Addendum - Attending Addendum Date/Time: 04/22/18 1222 I personally evaluated the patient and discussed the management with Dr. Gibbs. CTSP for elevated BP, reports scotomata earlier. I agree with the Examination, Assessment and Plan documented above. Will transfer to L&D for MgS04. <Roman Gaston - Last Filed: 04/22/18 12:24>
[2018-04-22] MEDS ORDERED: Acetaminophen 500 MG TAB PO SCH (11:45)
--- NOTE | 2018-04-22 11:54 | PDOC.EVN ---
Event Note - Event Note Event Note: Discussed plan of care with Dr. Gaston Decision made to transfer pt to L&D and initiate magnesium. Plan discussed with patient. <Vaishnavi Gibbs - Last Filed: 04/22/18 11:54> Attending Addendum - Attending Addendum Date/Time: 04/22/18 1569 I personally evaluated the patient and discussed the management with Dr. gibbs. I agree with the Examination, Assessment and Plan documented above. Discussed with Dr. Santos, she agrees with this plan. <Roman Gaston - Last Filed: 04/22/18 12:25>
[2018-04-22 12:03] LABS: #Eosinphils 0.3 thou/uL (0.0-0.7); #Lymphocytes 1.9 thou/uL (1.20-3.40); #Monocytes 0.5 thou/uL (0.11-0.59); #Neutrophils 9.3 thou/uL (1.40-6.50); %Basophils 0.1 % (0.0-1.0); %Eosinophils 2.3 % (0.0-10.0); %Lymphocytes 15.7 % (21.0-51.0); %Monocytes 4.2 % (0.0-10.0); %Neutrophils 77.7 % (42.0-75.0); Hemoglobin 11.7 g/dL (12.0-16.0); Mean Corpuscular Hemoglobin 27.6 pg (27.0-31.0); Mean Corpuscular Volume 83.6 fL (78.0-98.0); Platelet Count 295 thou/uL (130-400); RBC Distribution Width 12.4 % (11.5-14.5); Red Blood Cell (RBC) Count 4.24 mill/uL (4.20-5.40)
[2018-04-22] MEDS ORDERED: Calcium Gluconate 4.6 MEQ in Sodium Chloride 0.9% 100 ML IVPB PRN (12:14)
[2018-04-22] MEDS ORDERED: Magnesium Sulfate 20 GM/WATER 500 ML BAG IVPB SCH (12:14)
[2018-04-22] MEDS ORDERED: Magnesium Sulfate 20 gm/500 ml 20 GM/500 ML BAG IVPB SCH (12:14)
[2018-04-22] MEDS ORDERED: Magnesium Sulfate 20 gm/500 ml 20 GM/500 ML BAG ONE (12:20)
[2018-04-22 12:26] LABS: ALT (SGPT) 12 U/L (8-55); AST (SGOT) 15 U/L (5-34); Albumin 2.9 g/dL (3.5-5.0); Alkaline Phosphatase 117 U/L (40-150); Anion Gap 9 mmol/L (10-20); BUN (Urea Nitrogen) 7 mg/dL (7.0-18.7); Bilirubin, Total 0.3 mg/dL (0.2-1.2); Calc. Creatinine Clearance 165 mL/min (70-130); Calcium 9.7 mg/dL (7.8-10.44); Carbon Dioxide 26 mmol/L (22-29); Chloride 106 mmol/L (98-107); Estimated GFR-MDRD Greater than 90; Globulin 2.9 g/dL (2.4-3.5); Glucose 106 mg/dL (70-105); Potassium 4.1 mmol/L (3.5-5.1); Protein, Total 5.8 g/dL (6.0-8.3); Sodium 137 mmol/L (136-145)
[2018-04-22] MEDS: Lactated Ringer's 1,000 ML IV SCH (12:44)
[2018-04-22] MEDS: Labetalol HCl 100 MG/20 ML VIAL SLOW IVP PRN ×4 (13:37→17:25)
[2018-04-22 14:05] LABS: Creatinine, Urine Less than 20.00 mg/dL (47-110); Protein, Urine Random Quant Less than 10 mg/dL (1-14)
[2018-04-22] MEDS: hydrALAZINE 20 MG/ML VIAL SLOW IVP PRN ×2 (14:33→21:45)
--- NOTE | 2018-04-22 14:55 | PDOC.EVN ---
Event Note - Event Note Event Note: Re-evaluated the patient with Dr. Gaston. Reviewed BP's and they remain elevated in the severe range with SBP>160 despite a total of 100mg IV labetalol and 10mg IV hydralazine. Reviewed labs and they were WNL. -Continue magnesium -Give another dose of 10mg Hydralazine -If BP's do not improve despite several doses of standard therapy, will consider transfer to the CCU. <Vaishnavi Gibbs - Last Filed: 04/22/18 14:53> Attending Addendum - Attending Addendum Date/Time: 04/22/18 9445 I personally evaluated the patient and discussed the management with Dr. Gibbs. BPs remain elevated despite Mg and IV Labetalol. Will try IV Apresoline and observe closely. I agree with the History, Examination, Assessment and Plan documented above. <Roman Gaston - Last Filed: 04/22/18 15:05>
--- NOTE | 2018-04-22 19:12 | PDOC.EVN ---
Event Note - Event Note Event Note: Re-evaluated patient on magnesium @ [address] Gaston S: L sided sharp headache, not relieved with norco. Denies vision changes, SOB, swelling. O: BP had improved into the 140s for a while, but the last hour they have increased to SBP of 160 again. UOP has been about 600-800 mL/hour Gen: alert, oriented, NAD HEENT: cold sore on upper lip L of midline Neuro: 2/4 reflexes bilaterally, no clonus, neurologic exam grossly intact Ext: trace pitting edema in BLE A/P: 1. Pre-eclampsia with severe features, post- -Continue magnesium -Give Labetalol 40mg IVP now -Continue labetalol or hydralazine for SBP >160 or DBP > 110 -Will add procardia XL 60mg daily 2. Herpes labialis -Will start valtrex -Discussed hygiene precautions <Vaishnavi Gibbs - Last Filed: 04/22/18 19:04> Attending Addendum - Attending Addendum Date/Time: 04/22/181941 I personally evaluated the patient and discussed the management with Dr. Gibbs. I agree with the Assessment and Plan documented above. <Roman Gaston - Last Filed: 04/22/18 19:43>
[2018-04-22] MEDS: valACYclovir 500 MG TAB PO SCH (19:50)
[2018-04-22] MEDS ORDERED: NIFEdipine XL 60 MG TAB PO SCH (20:00)
[2018-04-22] MEDS ORDERED: Labetalol HCl 100 MG/20 ML VIAL SLOW IVP PRN (22:33)
--- NOTE | 2018-04-22 23:06 | PDOC.EVN ---
Event Note - Event Note Event Note: Re-evaluated the patient. BP's remain elevated despite multiple doses of labetalol and hydralazine. Dr. Gaston discussed the case with Dr. Acosta with Critical Care about options for the patient to treat her BP's. Dr. Acosta recommended transfer to the CCU and initiation of a cardene gtt for refractory HTN in a severe preeclamptic patient. Discussed plan with patient who agrees with plan of care. Will transfer pt at this time. Continue magnesium. Goal BP: SBP<160, DBP<110. <Vaishnavi Gibbs - Last Filed: 04/22/18 23:03> Attending Addendum - Attending Addendum Date/Time: 04/22/18 8422 I personally evaluated the patient and discussed the management with Dr. Gibbs. Discussed this pt. by phone with Dr. Acosta. In view of refractory BPs requiring multiple doses of Labetalol and Apresoline, decision is made to send pt. to ICU for Nifedipine drip. She will continue on MgS04. I agree with the Assessment and Plan documented above. <Roman Gaston - Last Filed: 04/22/18 23:41>
[2018-04-22] MEDS ORDERED: niCARdipine HCl 25 MG in Sodium Chloride 0.9% 250 ML 240 ML IVPB SCH (23:12)
[2018-04-23] MEDS: Lactated Ringer's 1,000 ML IV SCH ×2 (00:08→17:49)
[2018-04-23 00:50] VITALS: BMI 34.9
[2018-04-23] MEDS: HYDROcodone/Acetaminophen 5/325 mg Tablet PO PRN ×6 (01:06→23:01)
--- NOTE | 2018-04-23 01:44 | PDOC.EVN ---
Event Note - Event Note Event Note: Re-evaluated pt with Dr. Gaston BP's in 120s, pt has not required cardene gtt. -Continue mag -Start cardene gtt if SBP>160 or DBP>110 <Vaishnavi Gibbs - Last Filed: 04/23/18 01:44> Attending Addendum - Attending Addendum Date/Time: 04/23/18 0152 I personally evaluated the patient and discussed the management with Dr. Gibbs. BPs much improved in ICU. I agree with the Assessment and Plan documented above. <Roman Gaston - Last Filed: 04/23/18 01:53>
[2018-04-23 03:53] LABS: #Eosinphils 0.3 thou/uL (0.0-0.7); #Lymphocytes 1.7 thou/uL (1.20-3.40); #Monocytes 0.4 thou/uL (0.11-0.59); #Neutrophils 9.3 thou/uL (1.40-6.50); %Basophils 0.3 % (0.0-1.0); %Eosinophils 2.2 % (0.0-10.0); %Lymphocytes 14.3 % (21.0-51.0); %Monocytes 3.4 % (0.0-10.0); %Neutrophils 79.8 % (42.0-75.0); Hemoglobin 12.3 g/dL (12.0-16.0); Mean Corpuscular HGB CONC 33.2 g/dL (32.0-36.0); Mean Corpuscular Hemoglobin 27.3 pg (27.0-31.0); Mean Corpuscular Volume 82.2 fL (78.0-98.0); Mean Platelet Volume 6.8 fL (7.4-10.4); Platelet Count 350 thou/uL (130-400); RBC Distribution Width 12.5 % (11.5-14.5); Red Blood Cell (RBC) Count 4.51 mill/uL (4.20-5.40); White Blood Cell (WBC) Count 11.7 thou/uL (4.8-10.8)
[2018-04-23 04:15] LABS: ALT (SGPT) 15 U/L (8-55); AST (SGOT) 18 U/L (5-34); Alkaline Phosphatase 122 U/L (40-150); Anion Gap 12 mmol/L (10-20); BUN (Urea Nitrogen) 6 mg/dL (7.0-18.7); Bilirubin, Total 0.4 mg/dL (0.2-1.2); Calc. Creatinine Clearance 164 mL/min (70-130); Carbon Dioxide 25 mmol/L (22-29); Chloride 100 mmol/L (98-107); Estimated GFR-MDRD Greater than 90; Glucose 152 mg/dL (70-105); Potassium 4.1 mmol/L (3.5-5.1); Sodium 133 mmol/L (136-145)
--- NOTE | 2018-04-23 08:21 | PDOC.EVN ---
Event Note - Event Note Event Note: [facility] [employer] operator ICU to L&D note: 04/23/18 @ 0815: Assumed care this AM. Aware of yesterday's events. Case reviewed with Dr Gaston in detail. Patient to come out from ICU to L&D this AM (per ICU phone call this am). Meds: Procardia 60mg po XL QD. Last labs were wnl this AM
[2018-04-23] MEDS: Docusate Calcium (SURFAK) 240 MG CAP PO SCH ×2 (09:01→20:50)
[2018-04-23] MEDS: Ferrous Sulfate 325 MG TAB PO SCH ×2 (09:01→20:50)
[2018-04-23] MEDS: Prenatal Vitamin 1 TAB PO SCH (09:02)
[2018-04-23] MEDS ORDERED: Labetalol HCl 100 MG/20 ML VIAL SLOW IVP PRN (09:22)
[2018-04-23] MEDS: valACYclovir 500 MG TAB PO SCH ×2 (10:55→23:04)
--- NOTE | 2018-04-23 11:04 | PDOC.EVN ---
Event Note - Event Note Event Note: POD 3 after ICU: Patient now back in L&D...POD 3...Class B and PIH...now on Procardia 60mg XL Mag to stop at 1300, escamilla out. Patient seen at bedside. Plan d/w her Begin 2200 ADA diet and fasting dstcik and 2 hrs PP. has SSI
--- NOTE | 2018-04-23 11:46 | CON ---
DATE OF CONSULTATION: 04/23/2018 CONSULTING PHYSICIAN: Dr. Gaston. REASON FOR CONSULTATION: Post- preeclampsia with persistent hypertension. HISTORY OF PRESENT ILLNESS: The patient is a 38-year-old female who delivered at 37 weeks by C-secti on. Afterwards, she developed extreme hypertension. She was placed on magnesium. She was given mul tiple IV doses of labetalol yesterday without good control of blood pressure. She was brought down t he ICU with the intent of starting nicardipine, but apparently her blood pressure stabilized. Part o f this may have been changing to a different blood pressure cuff. She has been on magnesium drip. S he currently complains of a headache. She is having no shortness of breath or chest pain. PAST MEDICAL HISTORY: 1. Diabetes mellitus -- gestational. 2. Fibromyalgia. PAST SURGICAL HISTORY: Low transverse . SOCIAL HISTORY: Nonsmoker, does not consume alcohol. This is her second child. MEDICATIONS: At home, she was taking vitamins and insulin in the hospital. She is taking N orco, insulin, lactated Ringer's, magnesium sulfate, valacyclovir, simethicone. PHYSICAL EXAMINATION: VITAL SIGNS: Blood pressure 143/86, pulse 76, O2 sat 97%, respiratory rate 14. GENERAL: She is awake and alert and in no distress. HEENT: Pupils react. Sclerae icteric. Oropharynx clear. NECK: No JVD. LUNGS: Clear without wheezing. CARDIAC: S1, S2 regular, without murmur. ABDOMEN: Soft, nontender, nondistended. EXTREMITIES: No clubbing, cyanosis, or edema. LABORATORY DATA: White blood cell count 11.7, hematocrit 37.1, platelet count 350. AST 18, ALT 15. Sodium 133, potassium 4.1, BUN 6, creatinine 0.7, glucose 152. ASSESSMENT: hypertension, likely related to preeclampsia. PLAN: Blood pressure seems to be under good control and I think she can move back to the Obstetrics floor. She has been started on Procardia, which appears to have kicked in. She can be given labetal ol intermittently as needed.
[2018-04-23] MEDS: Ondansetron HCl/PF 4 MG/2 ML Vial IVP PRN (13:32)
--- NOTE | 2018-04-23 15:33 | PRG ---
DATE OF SERVICE: 04/23/2018 TIME: 13:16 LOCATION: Labor and Delivery. Post-magnesium sulfate note. SUBJECTIVE: In brief, the patient has completed her IV magnesium sulfate and Yang has been disconti nued as of roughly 1300. Blood pressures remain non-severe with a range in the 110s to 120s over 80s . She is asymptomatic. She also has had good diuresis with no new problems identified. OBJECTIVE: Blood pressures as previously stated. On physical exam, she does have her ON-Q pump stil l in use. ASSESSMENT: This is a patient who is postop day #3, who declined a trial of labor after an d underwent a repeat with ON-Q pump placement. She is now status post magnesium sulfate fo r 24 hours after a brief stint in the ICU yesterday. PLAN: 1. As her blood pressures are no longer in the severe range, we will continue her Procardia 60 mg XL every day. 2. Continue with her 2200 ADA diet. 3. The patient has D sticks written fasting and q.2 hours postprandial. 4. Okay for floor transport at this time for routine care. 5. Follow blood pressures q.4 hours.
[2018-04-23] MEDS ORDERED: Loratadine 10 MG TAB PO PRN (16:16)
[2018-04-23] MEDS ORDERED: NIFEdipine XL 60 MG TAB PO SCH (20:00)
[2018-04-24] MEDS: Prenatal Vitamin 1 TAB PO SCH (08:29)
[2018-04-24] MEDS: Ferrous Sulfate 325 MG TAB PO SCH (08:29)
[2018-04-24] MEDS: valACYclovir 500 MG TAB PO SCH (08:29)
[2018-04-24] MEDS: Docusate Calcium (SURFAK) 240 MG CAP PO SCH (08:29)
--- NOTE | 2018-04-24 12:00 | PDOC.PP ---
Post Progress Note Post Day #: 5 Subjective: POD5, no TERRY, doing well with BP med change to Procardia 60 XL daily, min pain, no concerns PO intake tolerated: yes Flatus: yes Ambulation: yes Vital Signs (12 hours) Temp Pulse Resp BP BP Pulse Ox 04/24/18 08:15 98.5 F 86 18 128/78 97 04/24/18 08:00 97 04/24/18 07:51 20 100 04/24/18 06:25 97.8 F 90 16 132/68 Weight Weight 197 lb 5.019 oz Most Recent Monitor Data Heart Rate from ECG 87 NIBP 118/72 NIBP BP-Mean 87 Respiration from ECG 17 SpO2 99 - Physical Examination General: NAD Respiratory: non-labored breathing Abdominal: no distention Extremities: negative homans (B) Skin: CS incision dry & intact Neurological: no gross focal deficits Psychiatric: A&Ox3, normal affect Result Diagrams: 04/23/18 03:26 04/23/18 03:26 Additional Labs: Post Labs Blood Type O POSITIVE 04/19/18 10:40 Hep Bs Antigen Non-Reactive S/CO (NonReactive) 04/19/18 10:40 (1) Status post repeat low transverse section Code(s): Z98.891 - HISTORY OF UTERINE SCAR FROM PREVIOUS SURGERY Status: Inactive (2) Diabetes mellitus complicating in third trimester, antepartum Code(s): O24.913 - UNSPECIFIED DIABETES MELLITUS IN , THIRD TRIMESTER Status: Acute (3) Gestational hypertension without significant proteinuria, Code(s): O13.9 - GESTATIONAL HTN W/O SIGNIFICANT PROTEINURIA, UNSP TRIMESTER Status: Acute - Assessment/Plan POD#5 sp RCS complicated by delayed preeclampia noted on POD3, sp magnesium recovery. BP now appear to be controlled w oral procardia and pt is asymptomatic. Possible DC later today if BP stable. Incision CDI, discussed checking BP at home and reporting them to the office this week.
[2018-04-24 12:02] VITALS: BP 135/74; TEMP 98.7
[2018-04-24] MEDS: HYDROcodone/Acetaminophen 5/325 mg Tablet PO PRN (14:41)
--- NOTE | 2018-04-24 21:48 | DIS ---
DATE OF ADMISSION: 04/19/2018 DATE OF DISCHARGE: 04/24/2018 ADMISSION DIAGNOSES: 1. Previous section with planned repeat. 2. White classification B pregestational diabetes. 3. Gestational hypertension. 4. A 37 weeks gestation. DISCHARGE DIAGNOSES: 1. Status post repeat section. 2. White classification B diabetes. 3. Preeclampsia with severe features. HOSPITAL COURSE: Ms. Mary Garcia was admitted on 04/19/2018 for a scheduled repeat section in the setting of gestational hypertension and class B pregestational diabetes. The patient underwe nt the section without complication. days 1 and 2, she was doing very well with her incisional pain controlled with ON-Q pump and oral medications. She was tolerating regular diet, ambulating and her . On postoperative day #3, she was noted to complain of a he adache and began having severe range blood pressures when they previously had been normal to mild ran ge. The patient was transferred back to Labor and Delivery where she received magnesium for seizure prophylaxis as well as multiple doses of IV hydralazine and labetalol with her blood pressures noted to be refractory to those medications. The patient was transferred to the ICU where she was monitore d very closely over there and remained on magnesium. On postoperative day #4, the patient was return ed to the floor where her blood pressures have since been controlled with Procardia-XL 60 mg once a day. By postoperative day #5, the patient did not have any neurological symptoms. She had diuresed well. Her laboratory findings were within normal limits to be expected after her and her blood pressures were normal. The patient was discharged home in good condition with an inci wendy that was clean, dry, and intact and instructions for checking her blood pressure at home, report ing them to the office where we will follow them closely and manage them as an outpatient. The al nt's questions have been answered.
== END 2018-04-24 15:08 | disposition home or self-care (01) | DRG 787 ==
LOC: L&D 09:39 → 3SW 15:30 → L&D 04-22 12:41 → CCU 04-23 00:06 → L&D 04-23 09:58 → 3SE 04-23 19:45
PROVIDERS: ADMIT Obstetrics & Gynecology; ATTEND Obstetrics & Gynecology
PROC: 10D00Z1 Extraction of Products of Conception, Low, Open Approach (ICD-10-PCS; principal; 2018-04-19)
DX: O34.211 Maternal care for low transverse scar from previous cesarean delivery (principal); O98.52 Other viral diseases complicating childbirth; O14.14 Severe pre-eclampsia complicating childbirth; O24.424 Gestational diabetes mellitus in childbirth, insulin controlled; Z3A.37 37 weeks gestation of pregnancy; Z37.0 Single live birth; M79.7 Fibromyalgia; O75.89 Other specified complications of labor and delivery; O99.284 Endocrine, nutritional and metabolic diseases complicating childbirth; E03.9 Hypothyroidism, unspecified; B00.1 Herpesviral vesicular dermatitis; Z79.82 Long term (current) use of aspirin; Z79.4 Long term (current) use of insulin
CPT/HCPCS: 36415; 36416; 51702; 80053; 82570; 84156; 85025; 85027; 86780; 86850; 86900; 86901; 87340; 90715; A4216; J0360; J1100; J1885; J2274; J2405; J2590; J2795; J3010; J3475; J3490; J7050; S0020

== ENCOUNTER 2018-07-24 09:32 | Day surgery (SDC) | payer BC, MEDICAID ==
[2018-07-21 10:44] VITALS: BMI 32.1
[2018-07-24] MEDS ORDERED: Heparin 5,000 UNITS/ML VIAL ONE (10:34)
[2018-07-24] MEDS ORDERED: CEFAZOLIN 2 GM/50 ML BAG ONE (10:34)
[2018-07-24] MEDS ORDERED: Bupivacaine/Epinephrine 0.25% 30 ML VIAL ONE (10:41)
[2018-07-24] MEDS ORDERED: Midazolam HCl 2 mg/2 ml Vial ONE (10:44)
[2018-07-24] MEDS ORDERED: Fentanyl 250 MCG/5 ML VIAL ONE (10:48)
[2018-07-24] MEDS ORDERED: Lidocaine 1% PF 5 ML VIAL ONE (13:23)
[2018-07-24] MEDS ORDERED: PHENYLEPHRINE-NS 100 MCG/ML 10 ML SYRINGE ONE (13:23)
[2018-07-24] MEDS ORDERED: Glycopyrrolate 0.2 MG/ML 5 ML SYRINGE ONE (13:23)
[2018-07-24] MEDS ORDERED: Dexamethasone 20 MG/5 ML VIAL ONE (13:23)
[2018-07-24] MEDS ORDERED: PROPOFOL 200 MG/20 ML VIAL ONE (13:23)
[2018-07-24] MEDS ORDERED: Ketorolac Tromethamine 30 MG/ML VIAL ONE (13:23)
[2018-07-24] MEDS ORDERED: Fentanyl 100 MCG/2 ML VIAL ONE (14:52)
[2018-07-24] MEDS ORDERED: Ondansetron PF 4 MG/2 ML Vial ONE (14:54)
--- NOTE | 2018-07-25 07:47 | OP ---
DATE OF PROCEDURE: 07/24/2018 PREOPERATIVE DIAGNOSIS: Macromastia. POSTOPERATIVE DIAGNOSIS: Macromastia. PROCEDURE PERFORMED: Bilateral breast reduction. DESCRIPTION OF PROCEDURE: Following the induction of adequate anesthesia, the patient was prepped and draped in the usual sterile fashion in the supine position. Attention was first turned to the right smaller breast. Modified Laboy pattern incisions were made as well as one around the areola. The skin over the inferior pole of the breast was de-epithelialized. Skin flaps were then raised superiorly, medially, and laterally. Dermoglandular units were then resected superiorly, medially, and laterally. I was unable to get to the insurance requirement of 480 g. I was also a fair distance off. The pedicle was as tenuous as I thought reasonable. A full-thickness nipple graft was then harvested. The pedicle was then reduced to satisfy the insurance requirements. The field was then copiously irrigated and inspected for meticulous hemostasis prior to securing the central mound superiorly with 2-0 PDS suture. The inverted-T was then closed with 3-0 PDS suture and 3-0 Monocryl suture. The nipple was then set on a 42-mm de-epithelialized defect with 4-0 Prolene suture. Similar procedure was done on the opposite side except for the fact that the nipple graft was harvested immediately. The patient tolerated the procedure well. All mcleod were copiously irrigated and inspected for meticulous hemostasis prior to closure. Job ID: [id number]
== END 2018-07-24 16:30 | disposition home or self-care (01) ==
LOC: SDC 09:32
PROVIDERS: ATTEND Plastic Surgery
PROC: 0HBV0ZZ Excision of Bilateral Breast, Open Approach (ICD-10-PCS; principal; 2018-07-24)
DX: N60.12 Diffuse cystic mastopathy of left breast (principal); N60.11 Diffuse cystic mastopathy of right breast; M79.7 Fibromyalgia; Z88.5 Allergy status to narcotic agent; Z79.2 Long term (current) use of antibiotics; Z79.899 Other long term (current) drug therapy
CPT/HCPCS: 88305; 96374; J0131; J1100; J1644; J1885; J2001; J2250; J2405; J2704; J3010

== ENCOUNTER 2022-11-25 10:00 | Emergency (ER) | payer BC, OTHER ==
[2022-11-25] MEDS ORDERED: LORazepam 2 MG/ML SYR.(CARPUJECT) ONE (10:31)
[2022-11-25 10:39] LABS: #Basophils 0.1 thou/uL (0.0-0.2); #Eosinphils 0.2 thou/uL (0.0-0.7); #Monocytes 0.5 thou/uL (0.11-0.59); #Neutrophils 3.6 thou/uL (1.40-6.50); %Basophils 0.8 % (0.0-1.0); %Eosinophils 2.2 % (0.0-10.0); %Lymphocytes 41.1 % (21.0-51.0); %Monocytes 6.3 % (0.0-10.0); %Neutrophils 49.5 % (42.0-75.0); Hemoglobin 13.5 g/dL (12.0-16.0); Mean Corpuscular HGB CONC 32.1 g/dL (32.0-36.0); Mean Corpuscular Hemoglobin 26.8 pg (27.0-31.0); Mean Corpuscular Volume 83.5 fl (78.0-98.0); Mean Platelet Volume 9.4 fL (7.4-10.4); Platelet Count 359 10x3/uL (130-400); RBC Distribution Width 13.5 % (11.5-14.5); Red Blood Cell (RBC) Count 5.03 mill/uL (4.20-5.40); White Blood Cell (WBC) Count 7.3 10x3/uL (4.8-10.8)
[2022-11-25 11:04] LABS: ALT (SGPT) 11 U/L (8-55); AST (SGOT) 15 U/L (5-34); Alkaline Phosphatase 90 U/L (40-110); Anion Gap 12 mmol/L (10-20); BUN (Urea Nitrogen) 8 mg/dL (7.0-18.7); Bilirubin, Total 0.4 mg/dL (0.2-1.2); Calc. Creatinine Clearance 0 mL/min (70-130); Calcium 9.1 mg/dL (7.8-10.44); Carbon Dioxide 25 mmol/L (22-29); Chloride 104 mmol/L (98-107); Estimated GFR 74; Globulin 3.2 g/dL (2.4-3.5); Glucose 123 mg/dL (70-105); Lipase 20 U/L (8-78); Magnesium 1.9 mg/dL (1.6-2.6); Potassium 4.1 mmol/L (3.5-5.1); Protein, Total 7.2 g/dL (6.0-8.3); Sodium 137 mmol/L (136-145)
[2022-11-25 12:17] LABS: Bilirubin Negative (Negative); Blood, Urine Negative (Negative); Clarity Clear (Clear); Glucose, Urine (Dipstick) Normal (Negative); Ketone, Urine Negative (Negative); Leukocyte Negative Leu/uL (Negative); Nitrite Negative (Negative); Protein, Urine (Dipstick) Negative (Neg-Trace); Specific Gravity, Urine 1.013 (1.002-1.036); Urobilinogen Normal mg/dL (Less than 2)
[2022-11-25 12:19] LABS: Pregnancy Test - Urine (BHCG) Negative (Negative); Pregu Control Background? CLEAR/WHITE (CLR/WHITE); Pregu Control Bar Appear? YES (CONTROL BAR); Specific Gravity 1.013 (1.002-1.036)
== END 2022-11-25 12:29 | disposition home or self-care (01) ==
LOC: ERS 10:00
DX: R07.89 Other chest pain (principal); F41.1 Generalized anxiety disorder; I10 Essential (primary) hypertension; E11.9 Type 2 diabetes mellitus without complications; Z87.891 Personal history of nicotine dependence
CPT/HCPCS: 36415; 71045; 80053; 81003; 81025; 83690; 83735; 84484; 85025; 93005; 96374; J2060

== ENCOUNTER 2023-04-27 13:52 | Emergency (ER) | payer BC, OTHER ==
[~2023-04-27 13:52] MED LIST: Iopamidol-370 76% 500 ML MDV (1 ML CHARGE) ONE
[2023-04-27] MEDS ORDERED: Morphine 4 MG/ML VIAL ONE (14:33)
[2023-04-27] MEDS ORDERED: Ondansetron PF 4 MG/2 ML Vial ONE (14:34)
[2023-04-27 14:38] LABS: #Monocytes 0.2 thou/uL (0.11-0.59); #Neutrophils 7.8 thou/uL (1.40-6.50); %Basophils 0.2 % (0.0-1.0); %Lymphocytes 7.6 % (21.0-51.0); %Monocytes 2.4 % (0.0-10.0); %Neutrophils 89.5 % (42.0-75.0); Hematocrit 40.7 % (36.0-47.0); Hemoglobin 13.4 g/dL (12.0-16.0); Mean Corpuscular HGB CONC 32.9 g/dL (32.0-36.0); Mean Corpuscular Hemoglobin 26.9 pg (27.0-31.0); Mean Corpuscular Volume 81.6 fl (78.0-98.0); Mean Platelet Volume 9.1 fL (7.4-10.4); Platelet Count 320 10x3/uL (130-400); RBC Distribution Width 13.6 % (11.5-14.5); Red Blood Cell (RBC) Count 4.99 mill/uL (4.20-5.40); White Blood Cell (WBC) Count 8.8 10x3/uL (4.8-10.8)
[2023-04-27 15:08] LABS: Anion Gap 13 mmol/L (10-20); BUN (Urea Nitrogen) 10 mg/dL (7.0-18.7); Calc. Creatinine Clearance 0 mL/min (70-130); Calcium 9.2 mg/dL (7.8-10.44); Carbon Dioxide 23 mmol/L (22-29); Chloride 101 mmol/L (98-107); Estimated GFR 85; Glucose 155 mg/dL (70-105); Sodium 133 mmol/L (136-145)
[2023-04-27 15:11] LABS: ALT (SGPT) 16 U/L (8-55); AST (SGOT) 17 U/L (5-34); Albumin 4.3 g/dL (3.5-5.0); Alkaline Phosphatase 93 U/L (40-110); Bilirubin, Direct 0.3 mg/dL (0.1-0.3); Bilirubin, Total 0.8 mg/dL (0.2-1.2); Lipase 16 U/L (8-78); Protein, Total 7.2 g/dL (6.0-8.3)
[2023-04-27 15:22] LABS: BHCG - Serum Negative (NEGATIVE); Pregs Control Background? CLEAR/WHITE (CLR/WHITE); Pregs Control Bar Appear? YES (CONTROL BAR)
[2023-04-27 16:05] LABS: Bacteria/HPF None Seen HPF (None Seen); Bilirubin Negative (Negative); Blood, Urine 3+ (Negative); CAUTI Indications for Culture Dysuria,urgency,freq; Clarity Clear (Clear); Glucose, Urine (Dipstick) Normal (Negative); Ketone, Urine 10 mg/dL (Negative); Leukocyte Negative Leu/uL (Negative); Nitrite Negative (Negative); Protein, Urine (Dipstick) Negative (Neg-Trace); RBC/HPF 21-50 HPF (0-3); Specific Gravity, Urine 1.019 (1.002-1.036); Squamous Epithelial 0-3 HPF (0-3); Urobilinogen Normal mg/dL (Less than 2); WBC/HPF 0-3 HPF (0-3)
[2023-04-27] MEDS ORDERED: Ketorolac Tromethamine 30 MG/ML VIAL ONE (16:37)
[2023-04-27 17:06] LABS: Urine Culture Reflex No No
[2023-04-27] MEDS ORDERED: Acetaminophen 325 MG TAB ONE (17:43)
== END 2023-04-27 17:48 | disposition home or self-care (01) ==
LOC: ERS 13:52
DX: R10.84 Generalized abdominal pain (principal); R10.816 Epigastric abdominal tenderness; R11.10 Vomiting, unspecified; I10 Essential (primary) hypertension; E11.9 Type 2 diabetes mellitus without complications; M79.7 Fibromyalgia; Z79.899 Other long term (current) drug therapy
CPT/HCPCS: 36415; 74177; 80048; 80076; 81001; 83690; 84703; 85025; 96374; 96375; J1885; J2270; J2405; Q9967

== ENCOUNTER 2023-07-15 07:48 | Outpatient (CLI) | payer BC, OTHER ==
[2023-07-15 08:42] LABS: BHCG - Serum Negative (NEGATIVE); Pregs Control Background? CLEAR/WHITE (CLR/WHITE); Pregs Control Bar Appear? YES (CONTROL BAR)
[2023-07-15 08:49] LABS: #Basophils 0.1 10x3/uL (0.0-0.2); #Eosinphils 0.2 10x3/uL (0.0-0.5); #Monocytes 0.5 10x3/uL (0.0-1.1); #Neutrophils 4.2 10x3/uL (1.5-8.4); %Basophils 1.2 % (0.0-2.0); %Eosinophils 2.8 % (0.0-6.0); %Lymphocytes 37.4 % (18.0-47.0); %Monocytes 5.8 % (0.0-10.0); %Neutrophils 52.4 % (40.0-75.0); ALT (SGPT) 14 U/L (8-55); AST (SGOT) 13 U/L (5-34); Albumin 3.9 g/dL (3.5-5.0); Alkaline Phosphatase 88 U/L (40-110); Anion Gap 12 mmol/L (10-20); BUN (Urea Nitrogen) 9 mg/dL (7.0-18.7); Bilirubin, Total 0.5 mg/dL (0.2-1.2); Calc. Creatinine Clearance 0 mL/min (70-130); Calcium 9.5 mg/dL (7.8-10.44); Carbon Dioxide 24 mmol/L (22-29); Chloride 107 mmol/L (98-107); Estimated GFR 85; Globulin 2.6 g/dL (2.4-3.5); Glucose 125 mg/dL (70-105); Hemoglobin 12.6 g/dL (12.0-15.5); Mean Corpuscular HGB CONC 32.3 g/dL (32.0-36.0); Mean Corpuscular Hemoglobin 25.7 pg (27.0-33.0); Mean Corpuscular Volume 79.4 fl (81.6-98.3); Mean Platelet Volume 9.1 fl (7.4-10.4); Platelet Count 400 10x3/uL (150-450); Potassium 4.3 mmol/L (3.5-5.1); Protein, Total 6.5 g/dL (6.0-8.3); RBC Distribution Width 13.6 % (11.5-14.5); Red Blood Cell (RBC) Count 4.91 10x6/uL (3.90-5.03); Sodium 139 mmol/L (136-145); White Blood Cell (WBC) Count 8.1 10x3/uL (3.5-10.5)
== END 2023-07-15 07:49 | disposition home or self-care (01) ==
LOC: LABBT 07:48
PROVIDERS: ATTEND Surgery
DX: Z01.818 Encounter for other preprocedural examination (principal); K43.9 Ventral hernia without obstruction or gangrene
CPT/HCPCS: 80053; 84703; 85025; 93005; 93010

== ENCOUNTER 2024-05-22 10:19 | Outpatient (CLI) | payer BC, OTHER | END 2024-05-22 10:20 | disposition home or self-care (01) | LOC: SCSRAD 10:19 | PROVIDERS: ATTEND Internal Medicine Rheumatology | DX: M46.1 Sacroiliitis, not elsewhere classified (principal); M89.9 Disorder of bone, unspecified | CPT/HCPCS: 72202 ==